=== PATIENT | female | born 1990 | race Caucasian/White ===

== ENCOUNTER 2017-05-05 11:25 | Emergency (ER) | payer BC, OTHER ==
--- NOTE | 2017-05-05 11:36 | PDOC ---
History of Present Illness - General Chief Complaint: Urinary Problem Stated Complaint: UTI Time Seen by Provider: 05/05/17 11:35 - History of Present Illness Initial Comments: 05/05/17 11:51 26yo female presents c/o increased urinary freq and burning. States she has been fighting UTIs since january. Was treated with ABX in january, february, march. States she saw her urologist on Saturday because of urinary freq and burning - urine checked at that visit did not show a uti. States her symptoms persisted and on had an episode of n/v and went to her PMD who started her on Macrobid. She has been taking the macrobid, but today is still c/o urinary freq (states she had to get up multiple times at night to urinate) and dysuria. States because of the freq she feels dehydrated and her migraines have been worsening. Pt states she takes topamax for migraine headaches (last use was last night). Last pyridium was last night. C/o nausea today. No flank pain. no cp/sob/cough. No abd pain, c/o suprapubic burning, no vaginal complaints. No neck pain. No meningeal signs, no f/c. No blood in urine. No other complaints. 05/05/17 11:54 PMHx: frequent UTI, migraines PSHx: cyst removed from hand All: NKDA Past History - Past Medical History Allergies/Adverse Reactions: Allergies Allergy/AdvReac Type Severity Reaction Status Date / Time No Known Allergies Allergy Verified 05/05/17 11:34 Home Medications: Ambulatory Orders Acetaminophen/Caffeine/Butalb [Fioricet -] 1 tab PO Q6H PRN #12 tablet MDD 4 tabs per day 05/05/17 Cefpodoxime Proxetil [Vantin -] 100 mg PO BID #14 tablet 05/05/17 Nitrofurantoin Macrocrystal [Nitrofurantoin] 100 mg PO BID 05/05/17 Phenazopyridine HCl [Pyridium] 100 mg PO BID PRN 05/05/17 Phenazopyridine HCl [Pyridium] 100 mg PO TID PRN #6 tablet 05/05/17 Prednisone [Deltasone -] 5 mg PO ASDIR 05/05/17 Topiramate [Topamax] 50 mg PO BID 05/05/17 Asthma: No Diabetes: No HTN: No - Surgical History Orthopedic Surgery: Yes (hand surgery for a ganglion cyst) - Suicide/Smoking/Psychosocial Hx Smoking History: Never smoked Hx Alcohol Use: Yes (SOCIAL) Substance Use Type: None Review of Systems - Review of Systems Able to Perform ROS?: Yes Is the patient limited Divehi proficient: No Constitutional: No: Chills, Fever HEENTM: No: Nose Congestion, Throat Pain Respiratory: No: Cough, Shortness of Breath Cardiac (ROS): No: Chest Pain, Edema ABD/GI: Yes: Nausea, Other (suprapubic pain). No: Diarrhea, Vomiting : Yes: Burning, Dysuria, Frequency, Urgency. No: Flank Pain, Hematuria Musculoskeletal: No: Back Pain All Other Systems: Reviewed and Negative *Physical Exam - Vital Signs 05/05/17 11:55 Selected Entries 05/05/17 11:32 Temperature 99.1 F Pulse Rate 93 H Respiratory 15 Rate Blood Pressure 135/80 O2 Sat by Pulse 96 Oximetry (%) Weight 108.862 kg - Physical Exam General Appearance: Yes: Nourished, Appropriately Dressed, Other (tearful) HEENT: positive: EOMI, Pharynx Normal Neck: positive: Trachea midline, Supple. negative: Tender Respiratory/Chest: positive: Lungs Clear, Normal Breath Sounds. negative: Respiratory Distress Cardiovascular: positive: Regular Rhythm, Regular Rate, S1, S2 Vascular Pulses: Dorsalis-Pedis (R): 2+, Doralis-Pedis (L): 2+ Gastrointestinal/Abdominal: positive: Normal Bowel Sounds, Tender (suprapubic), Flat, Soft, Other (no cva ttp). negative: Distended, Rebound, Tenderness Musculoskeletal: positive: Normal Inspection. negative: CVA Tenderness Extremity: positive: Normal Capillary Refill, Normal Inspection, Normal Range of Motion. negative: Tender, Swelling Integumentary: positive: Normal Color, Dry, Warm Neurologic: positive: Fully Oriented, Alert, Other (no focal neuro deficit, ambulated into the ED) ED Treatment Course - LABORATORY CBC & Chemistry Diagram: 05/05/17 12:50 05/05/17 12:50 Medical Decision Making - Medical Decision Making 05/05/17 11:57 a/p: 26yo female with urinary freq/dysuria -concern for UTI -concern given outpt abx x 3 days and still with symptoms -will check labs, ua, ucg, ucx -ivf hydration, reglan, benadryl for GALEAS -reassess -plan discussed with the patient who agrees with the plan. 05/05/17 12:41 pt with a UTI on UA. Culture pending. Will give rocephin iv since the patient is already on macrobid. 05/05/17 13:05 pt updated on UA results. 05/05/17 14:16 pt states she has been seeing her neurologist for 2 years for her migraines. States she started a medrol dose more and topamax 2 days ago for her migraines. Last saw her neurologist on Saturday. 05/05/17 14:44 pt feeling better. GALEAS resolved. Pt stable for d/c to home. Discussed lab results again. Pt understands all reasons to return to the ED and need for follow up. Answered all questions. *DC/Admit/Observation/Transfer Diagnosis at time of Disposition: UTI (urinary tract infection), Migraine - Discharge Dispostion Disposition: HOME Condition at time of disposition: Stable Admit: No - Prescriptions Prescriptions: Acetaminophen/Caffeine/Butalb [Fioricet -] 1 tab PO Q6H PRN #12 tablet MDD 4 tabs per day PRN Reason: Headache Cefpodoxime Proxetil [Vantin -] 100 mg PO BID #14 tablet Phenazopyridine HCl [Pyridium] 100 mg PO TID PRN #6 tablet PRN Reason: Pain Level 6-10 - Referrals Referrals: Andreea Reddy MD [Primary Care Provider] - - Patient Instructions Printed Discharge Instructions: DI for Migraine, DI for Urinary Tract Infection (UTI) Additional Instructions: Please make an appointment to see your urologist. Please follow up with your neurologist as scheduled. Please return to the ED with any further concerns. Please take all antibiotics as prescribed. Please stop taking macrobid. Please take a probiotic or eat yogurt to avoid getting a yeast infection. Please make an appointment to see your PMD. Your urine culture is still pending. If the antiobiotics are not appropriate for the bacteria causing your UTI we will call you and change your antibiotics. - Post Discharge Activity
[2017-05-05 11:50] LABS: PH,URINE 5.5 (4.5-8); URINE BILIRUBIN 1+ (NEGATIVE); URINE BLOOD Negative (NEGATIVE); URINE GLUCOSE (UA) Trace (NEGATIVE); URINE KETONE Negative (NEGATIVE); URINE LEUK ESTERASE Negative (NEGATIVE); URINE NITRITE Positive (NEGATIVE)
[2017-05-05] MEDS ORDERED: SODIUM CHLORIDE 0.9% 1000 ML INFUS.BAG IV ONE (11:50)
[2017-05-05] MEDS ORDERED: PHENAZOPYRIDINE HCL 100 MG TABLET (FP) PO ONE (11:50)
[2017-05-05] MEDS ORDERED: KETOROLAC TROMETHAMINE 30 MG/1 ML VIAL IVPUSH ONE (11:50)
[2017-05-05] MEDS ORDERED: METOCLOPRAMIDE HCL INJECTION 10 MG/2 ML VIAL IVPUSH ONE (11:50)
[2017-05-05 11:53] VITALS: BP 135/80; PULSE 93; BMI 41.1
[2017-05-05 11:54] LABS: URINE APPEARANCE HAZY; URINE COLOR YELLOW; URINE PROTEIN 1+ (NEGATIVE)
[2017-05-05] MEDS ORDERED: KETOROLAC TROMETHAMINE 30 MG/1 ML VIAL ONE (12:06)
[2017-05-05] MEDS ORDERED: PHENAZOPYRIDINE HCL 100 MG TABLET (FP) ONE (12:06)
[2017-05-05 12:07] LABS: URINE BACTERIA MODERATE /hpf (NEGATIVE)
[2017-05-05] MEDS ORDERED: cefTRIAXone 1 GM/50 ML BAG (PRE-DOCKED) IVPB ONE (12:40)
[2017-05-05] MEDS ORDERED: cefTRIAXone SODIUM 1 GM VIAL ONE (13:00)
[2017-05-05 13:09] LABS: BASOPHIL 0.4 % (0-2.0); EOSINOPHIL 0.2 % (0-4.5); MCH 26.5 pg (25.7-33.7); MCHC 32.6 g/dl (32.0-36.0); MEAN CELL VOLUME 81.4 fl (80-96); MEAN PLT VOLUME 9.2 fl (7.5-11.1); NEUTROPHILS 80.2 % (42.8-82.8); PLATELET COUNT 357 K/MM3 (134-434); RDW 13.5 % (11.6-15.6); WHITE BLOOD COUNT 13.6 K/mm3 (4.0-10.8)
[2017-05-05 13:27] LABS: ALK PHOS 58 U/L (32-92); ANION GAP 10 (8-16); BILIRUBIN,TOTAL 0.2 mg/dl (0.2-1.0); CALCIUM 9.5 mg/dl (8.4-10.2); CO2 23 mmol/L (22-28); CREATININE 0.7 mg/dl (0.6-1.3); GLUCOSE,RANDOM 124 mg/dl (74-106); SGOT/AST 18 U/L (10-42); SGPT/ALT 13 U/L (10-40); TOT PROT 7.7 g/dl (6.4-8.3)
[2017-05-05] MEDS ORDERED: MAGNESIUM SULF 50% (8.12 MEQ/2 ML-1 GM VIAL) IVPB ONE (13:42)
[2017-05-05] MEDS ORDERED: ACETAMINOPHEN/CAFFEINE/BUTALBITAL 1 TAB PO ONE (13:42)
[2017-05-05] MEDS ORDERED: ACETAMINOPHEN/CAFFEINE/BUTALBITAL 1 TAB ONE (13:45)
[2017-05-05 14:37] VITALS: TEMP 97.8
== END 2017-05-05 15:09 | disposition home or self-care (01) ==
LOC: FER 11:25
PROC: 3E0333Z Introduction of Anti-inflammatory into Peripheral Vein, Percutaneous Approach (ICD-10-PCS; principal; 2017-05-05)
PROC: 3E033GC Introduction of Other Therapeutic Substance into Peripheral Vein, Percutaneous Approach (ICD-10-PCS; 2017-05-05)
PROC: 3E0337Z Introduction of Electrolytic and Water Balance Substance into Peripheral Vein, Percutaneous Approach (ICD-10-PCS; 2017-05-05)
DX: N39.0 Urinary tract infection, site not specified (principal); G43.909 Migraine, unspecified, not intractable, without status migrainosus; Z87.440 Personal history of urinary (tract) infections
CPT/HCPCS: 36415; 80053; 81003; 81015; 84703; 85025; 87086; 99282-25

== ENCOUNTER 2018-03-01 19:14 | Emergency (ER) | payer BC, OTHER ==
--- NOTE | 2018-03-01 19:21 | PDOC ---
History of Present Illness - General History Source: Patient Exam Limitations: No Limitations - History of Present Illness Initial Comments: 03/01/18 19:59 The patient is a 27 year old female, with no significant past medical history, who presents to the emergency department with, diffuse abdominal pain. As per patient, she had a colonoscopy 5 days ago and had biopsies taken out without any pertinent findings. She reports calling her PCP who advised her to report to the ED for a CT scan. She describes her abdominal pain as diffuse, crampy, with associated bloating. Her pain is worsened after eating. She denies any alleviating factors. She denies recent fevers, chills, headache or dizziness. She denies recent nausea, vomit, diarrhea or constipation. She denies recent dysuria, frequency, urgency or hematuria. She denies recent chest pain or shortness of breath. Allergies: NKA Past surgical history: Colonoscopy. Social history: Nonsmoker. Denies EtOH use and recreational drug use. Primary Care Physician: Dr. Reddy <Vy Palacios - Last Filed: 03/01/18 19:59> <Yvette Lane - Last Filed: 03/02/18 01:39> - General Chief Complaint: Pain, Acute Stated Complaint: ABD PAIN Time Seen by Provider: 03/01/18 19:21 Past History <Vy Palacios - Last Filed: 03/01/18 19:59> - Past Medical History Asthma: No COPD: No Diabetes: No GI Disorders: Yes (CHRONIC DIARRHEA) Disorders: Yes (UTI) HTN: No - Surgical History Orthopedic Surgery: Yes (hand surgery for a ganglion cyst) - Suicide/Smoking/Psychosocial Hx Smoking History: Never smoked Have you smoked in the past 12 months: No Hx Alcohol Use: (occasional) Drug/Substance Use Hx: No Substance Use Type: None <Yvette Lane - Last Filed: 03/02/18 01:39> - Past Medical History Allergies/Adverse Reactions: Allergies Allergy/AdvReac Type Severity Reaction Status Date / Time No Known Allergies Allergy Verified 08/16/17 15:23 Home Medications: Ambulatory Orders Polyethylene Glycol 3350 [Miralax (For Daily Use) -] 17 gm PO DAILY #1 bottle Review of Systems - Review of Systems Able to Perform ROS?: Yes Comments:: 03/01/18 19:59 GENERAL/CONSTITUTIONAL: No fever or chills. No weakness. HEAD, EYES, EARS, NOSE AND THROAT: No change in vision. No ear pain or discharge. No sore throat. CARDIOVASCULAR: No chest pain or shortness of breath. RESPIRATORY: No cough, wheezing, or hemoptysis. +GASTROINTESTINAL: Abdominal pain. No nausea, vomiting, diarrhea or constipation. GENITOURINARY: No dysuria, frequency, or change in urination. MUSCULOSKELETAL: No joint or muscle swelling or pain. No neck or back pain. SKIN: No rash NEUROLOGIC: No headache, vertigo, loss of consciousness, or change in strength/ sensation. ENDOCRINE: No increased thirst. No abnormal weight change. HEMATOLOGIC/LYMPHATIC: No anemia, easy bleeding, or history of blood clots. ALLERGIC/IMMUNOLOGIC: No hives or skin allergy. All Other Systems: Reviewed and Negative <Vy Palacios - Last Filed: 03/01/18 19:59> *Physical Exam - Vital Signs Last Vital Signs Temp Pulse Resp BP Pulse Ox 98.9 F 102 H 16 134/83 100 03/01/18 19:15 03/01/18 19:15 03/01/18 19:15 03/01/18 19:15 03/01/18 19:15 - Physical Exam Comments: 03/01/18 20:00 GENERAL: Awake, alert, and fully oriented, in no acute distress HEAD: No signs of trauma EYES: PERRLA, EOMI, sclera anicteric, conjunctiva clear ENT: Auricles normal inspection, hearing grossly normal, nares patent, oropharynx clear without exudates. Moist mucosa NECK: Normal ROM, supple, no lymphadenopathy, JVD, or masses LUNGS: Breath sounds equal, clear to auscultation bilaterally. No wheezes, and no crackles HEART: Regular rate and rhythm, normal S1 and S2, no murmurs, rubs or gallops +ABDOMEN: Diffuse nonfocal abdominal pain. Soft, normoactive bowel sounds. No guarding, no rebound. No masses EXTREMITIES: Normal range of motion, no edema. No clubbing or cyanosis. No cords, erythema, or tenderness NEUROLOGICAL: Cranial nerves II through XII grossly intact. Normal speech, normal gait SKIN: Warm, Dry, normal turgor, no rashes or lesions noted. <Vy Palacios - Last Filed: 03/01/18 19:59> - Vital Signs Last Vital Signs Temp Pulse Resp BP Pulse Ox 98.9 F 102 H 16 134/83 100 03/01/18 19:15 03/01/18 19:15 03/01/18 19:15 03/01/18 19:15 03/01/18 19:15 <Yvette [address] - Last Filed: 03/02/18 01:39> ED Treatment Course - Medications Given in the ED: ED Medications Discontinued Medications Generic Name Dose Route Start Last Admin Trade Name Gonzales PRN Reason Stop Dose Admin Morphine Sulfate 2 mg 03/01/18 19:29 03/01/18 19:57 Morphine Injection - IVPUSH 03/01/18 19:30 2 mg ONCE ONE Administration Sodium Chloride 1,000 ml 03/01/18 19:29 03/01/18 19:57 Normal Saline - IV 03/01/18 19:30 1,000 ml ONCE ONE Administration <Vy Palacios - Last Filed: 03/01/18 19:59> - LABORATORY CBC & Chemistry Diagram: 03/01/18 19:45 03/01/18 19:45 <Yvette Lane - Last Filed: 03/02/18 01:39> Medical Decision Making - Medical Decision Making 03/01/18 21:25 Labs are normal; UA normal. Pt is getting CT scan of the abd pelvis. 03/01/18 22:57 Patient Name: WESTON LINDA THIS IS A PRELIMINARY REPORT FROM [facility] DATE OF SERVICE: 2018-03-01 21:07:18 IMAGES: [id number] EXAM: CT abdomen/pelvis with contrast HISTORY: Rule out perforation COMPARISON: None. FINDINGS: There is no free air in the abdomen. There is borderline hepatosplenomegaly. The gallbladder is partially contracted. There are no obvious gallstones. There is a moderate amount of ingested fluid and debris noted within the stomach. There is no hydronephrosis. There are no renal calculi. There is a moderate amount of stool noted in the colon. There is no evidence of intestinal obstruction. The appendix is normal in size. There is no evidence of appendicitis. Urinary bladder is partially decompressed. There are no bladder calculi. 2.0 cm right ovarian cyst noted. Individualized dose optimization techniques were used for this CT. THIS DOCUMENT HAS BEEN ELECTRONICALLY SIGNED 03/02/18 01:37 Pt arrived anxious and stressed as she has had pain since her colonoscopy; however, labs are normal; UA normal, and exam is nonspecific. Pt can be reassured and her pain gets better. I discussed with the patient that her pain is most likely due to gas and constipation. She will alter her diet and eat more fruits and vegetables. <Yvette Lane - Last Filed: 03/02/18 01:39> *DC/Admit/Observation/Transfer - Attestations Scribe Attestion: 03/01/18 20:00 Documentation prepared by Vy Palacios, acting as medical care administrator for Yvette Lane MD. <Vy Palacios - Last Filed: 03/01/18 19:59> - Discharge Dispostion Decision to Admit order: No <Yvette Lane - Last Filed: 03/02/18 01:39> Diagnosis at time of Disposition: Constipated, Gas pain - Discharge Dispostion Disposition: HOME Condition at time of disposition: Stable - Prescriptions Prescriptions: Polyethylene Glycol 3350 [Miralax (For Daily Use) -] 17 gm PO DAILY #1 bottle - Referrals Referrals: Andreea Reddy MD [Primary Care Provider] - - Patient Instructions Printed Discharge Instructions: Eating a Diet Rich in Fruits and Vegetables, Do Raw Food (Living Food) Diets Promote Good Health? - Post Discharge Activity
[2018-03-01 19:24] VITALS: BP 134/83; PULSE 102; TEMP 98.9; BMI 42.9
[2018-03-01] MEDS ORDERED: SODIUM CHLORIDE 0.9% 500 ML INFUS.BAG IV ONE (19:29)
[2018-03-01] MEDS ORDERED: morphine CARPU-JECT 2 MG/1 ML DISP.SYRIN IVPUSH ONE (19:29)
[2018-03-01] MEDS ORDERED: morphine SULFATE 4 MG/ML VIAL ONE (19:40)
[2018-03-01 20:03] LABS: URINE APPEARANCE Clear; URINE BILIRUBIN Negative (NEGATIVE); URINE COLOR Yellow; URINE GLUCOSE (UA) Negative (NEGATIVE); URINE KETONE Trace (NEGATIVE); URINE LEUK ESTERASE Negative (NEGATIVE); URINE NITRITE Negative (NEGATIVE); URINE PROTEIN Negative (NEGATIVE); URINE UROBILINOGEN 0.2 (0.2-1.0)
[2018-03-01 20:06] LABS: HEMOGLOBIN 11.9 GM/dl (10.7-15.3); MCH 26.9 pg (25.7-33.7); MCHC 32.2 g/dl (32.0-36.0); MEAN CELL VOLUME 83.5 fl (80-96); MEAN PLT VOLUME 8.9 fl (7.5-11.1); PLATELET COUNT 207 K/MM3 (134-434); RBC 4.43 M/mm3 (3.60-5.2); RDW 14.5 % (11.6-15.6); WHITE BLOOD COUNT 9.9 K/mm3 (4.0-10.8)
[2018-03-01 20:09] LABS: HCG,QUALITATIVE URINE Negative
[2018-03-01 20:12] LABS: EPI CELLS FEW /HPF; URINE BACTERIA FEW /hpf (NEGATIVE); URINE WBC 0-2 (0-5)
[2018-03-01 20:16] LABS: ALBUMIN 3.6 g/dl (3.5-5.0); ALK PHOS 57 U/L (32-92); ANION GAP 10 MMOL/L (8-16); BILIRUBIN,TOTAL 0.7 mg/dl (0.2-1.0); BLOOD UREA NITROGEN 9 mg/dl (7-18); CALCIUM 8.9 mg/dl (8.4-10.2); CHLORIDE 103 mmol/L (98-107); CO2 24 mmol/L (22-28); CREATININE 0.8 mg/dl (0.6-1.3); GLUCOSE,RANDOM 103 mg/dl (74-106); SGOT/AST 32 U/L (10-42); SGPT/ALT 15 U/L (10-40); SODIUM 137 mmol/L (136-145); TOT PROT 6.8 g/dl (6.4-8.3)
[2018-03-01 20:18] LABS: POTASSIUM 4.6 mmol/L (3.5-5.1)
[2018-03-01 20:45] LABS: PLATELET ESTIMATE ADEQUATE
== END 2018-03-01 23:32 | disposition home or self-care (01) ==
LOC: FER 19:14
PROC: 3E0337Z Introduction of Electrolytic and Water Balance Substance into Peripheral Vein, Percutaneous Approach (ICD-10-PCS; principal; 2018-03-01)
PROC: 3E033NZ Introduction of Analgesics, Hypnotics, Sedatives into Peripheral Vein, Percutaneous Approach (ICD-10-PCS; 2018-03-01)
DX: K59.00 Constipation, unspecified (principal); R14.1 Gas pain
CPT/HCPCS: 36415; 74177-TC; 80053; 81003; 81015; 84703; 85025; 99282-25